=== PATIENT | male | born 1945 | race Caucasian/White ===

== ENCOUNTER → 2021-12-14 | Outpatient (CLI) | payer MEDICARE ==
--- NOTE | 2021-12-14 06:54 | MR ---
EXAMINATION TYPE: MR knee RT wo con DATE OF EXAM: 12/14/2021 COMPARISON: None. HISTORY: Rt knee pain and swelling due to pushing a cart TECHNIQUE: Multiplanar, multisequence imaging of the right knee is performed without IV contrast. FINDINGS: MEDIAL MENISCUS: Medial extrusion medial meniscus on coronal images with increased internal signal Ob lique increased signal posterior horn extends to the inferior articular surface. LATERAL MENISCUS: Anterior and posterior horns are intact without tear. CRUCIATE LIGAMENTS: The anterior and posterior cruciate ligaments are intact and unremarkable. COLLATERAL LIGAMENTS: The medial collateral ligament and lateral collateral ligament complex are inta ct. Marked fluid signal surrounds the medial collateral ligament. EXTENSOR MECHANISM: Visualized quadriceps and patellar tendons are intact. EFFUSION: Moderate to large size suprapatellar joint effusion. POPLITEAL CYST: No popliteal/restrepo cyst. TRICOMPARTMENT SPACES: [id number] tricompartment joint space loss. No significant spurring. 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 Cartilaginous loss medial tibiofemoral compartment with focal 4 mm defect sagittal image 11 AP diameter corresponding to 3 mm defect transversely coronal image 24 overlying the distal medial femoral condyle. BONE MARROW SIGNAL: Marked heterogeneous diminished T1 and increased T2 signal throughout the medial tibial plateau with area of linear low T1 and T2 signal anterior medial aspect coronal image 19 and s agittal image 11 suspicious for nondisplaced incomplete fracture. OTHER: No additional significant abnormality is appreciated. IMPRESSION: 1. Oblique full thickness tear posterior horn medial meniscus. 2. Moderate to large-sized suprapatellar joint effusion. 3. Moderate MCL sprain injury. 4. Focal osteochondral defect distal medial femoral condyle as detailed above. 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 5. Suspect nondisplaced incomplete fracture through the medial tibial plateau with surrounding abnorm al bone marrow edema or osseous contusion injury.
== END | disposition home or self-care (01) ==
LOC: RADMRIMAIN 05:44
PROVIDERS: ATTEND Family Medicine
DX: M17.11 Unilateral primary osteoarthritis, right knee (principal); S83.411A Sprain of medial collateral ligament of right knee, initial encounter; M21.851 Other specified acquired deformities of right thigh; S83.241A Other tear of medial meniscus, current injury, right knee, initial encounter